=== PATIENT | female | born 1935 | race Caucasian/White ===

== ENCOUNTER 2017-08-10 08:15 | Day surgery (SDC) | payer OTHER, MEDICARE ==
[~2017-08-10] VITALS: Ht 162.6 cm; Wt 76.2 kg
[~2017-08-10 08:15] MED LIST: ATIVAN0.5 MG PO; Ascorbic Acid,Ester- PO; Ativan PO; COUMADIN6 MG PO; Coumadin dosing per PO; Coumadin,Jantoven PO; Feosol PO; Fish Oil PO; HYZAAR 100-21 TABLET PO; K-DUR10 ME2 PO; K-DUR10 MEQ PO; OYST-CAL D, OS500 M1 PO; SENOKOT S,PE1 TABLET PO; TENORMIN100 MG PO; Tenoretic 50 PO; Tenormin PO; VITAMIN D1000 INTUN PO; Vicodin,Norco 5/325 PO; Vitamin B Complex PO
[2017-08-10 08:49] VITALS: BP 169/95
[2017-08-10 09:03] LABS: INTER. NORMALIZED RATIO 1.1; PROTHROMBIN TIME 12.1 SEC (10.2-12.9); PTT 29.3 SEC (25-37)
[2017-08-10 13:15] VITALS: BP 168/79
[2017-08-10 14:00] VITALS: BP 143/92
== END 2017-08-10 14:30 | disposition home or self-care (01) ==
LOC: SDC 08:15
PROVIDERS: Surgery
DX: K64.4 Residual hemorrhoidal skin tags (principal); I10 Essential (primary) hypertension; G47.33 Obstructive sleep apnea (adult) (pediatric); I48.91 Unspecified atrial fibrillation; E11.9 Type 2 diabetes mellitus without complications; Z79.01 Long term (current) use of anticoagulants; Z88.2 Allergy status to sulfonamides
CPT/HCPCS: 85610; 85730; 88304; J0131; J1100; J2405; J3010